=== PATIENT | male | born 1970 | race Hispanic/Latino ===

== ENCOUNTER 2022-04-20 11:36 | Emergency (ER) | payer OTHER ==
[~2022-04-20] VITALS: Ht 193 cm; Wt 104.3 kg
[2022-04-20 12:19] LABS: APPEARANCE,URINE CLEAR (CLEAR); BILIRUBIN,URINE NEGATIVE (NEGATIVE); COLOR,URINE COLORLESS (YELLOW); GLUCOSE, URINE (UA) NEGATIVE (NEGATIVE); KETONES,URINE NEGATIVE (NEGATIVE); LEUKOCYTE ESTERASE ,URINE NEGATIVE Leu/uL (NEGATIVE); NITRATE,URINE NEGATIVE (NEGATIVE); OCCULT BLOOD,URINE NEGATIVE (NEGATIVE); PROTEIN,URINE NEGATIVE (NEGATIVE); UROBILINOGEN,URINE 0.2 mg/dL (0.2-1.0)
[2022-04-20] MEDS ORDERED: FINA5TAB41 PO (12:39)
[2022-04-20 12:53] VITALS: BP 134/78
== END 2022-04-20 12:58 | disposition home or self-care (01) ==
LOC: EDH 11:36
DX: N41.9 Inflammatory disease of prostate, unspecified (principal); R35.0 Frequency of micturition
CPT/HCPCS: 81003